=== PATIENT | male | born 2000 | race Caucasian/White ===

== ENCOUNTER 2024-06-29 17:39 | Emergency (ER) | payer BC ==
[2024-06-29] MEDS: Acetaminophen 325 MG Tab PO ONE (20:12)
[2024-06-29] MEDS: oxyCODONE 5 MG Tab PO ONE (20:12)
== END 2024-06-29 20:56 | disposition home or self-care (01) ==
LOC: JD.ED 17:39
DX: S92.302A Fracture of unspecified metatarsal bone(s), left foot, initial encounter for closed fracture (principal)
CPT/HCPCS: 73600; 73620; 99283; A9270